=== PATIENT | female | born 1990 | race Caucasian/White ===

== ENCOUNTER → 2021-09-03 14:54 | Outpatient (CLI) | payer OTHER, SELFPAY ==
--- NOTE | ~2021-09-03 | MM_ITS ---
EXAMINATION: MM scrn prabha implant BI w aleta HISTORY: Screening mammogram TECHNIQUE: Craniocaudal and mediolateral oblique 3-D tomosynthesis images with implant displacement a nd synthetic 2-D images were generated. Craniocaudal and mediolateral oblique views of the breasts wi thout implant displacement were obtained using full field digital mammography. CAD analysis was submi tted and interpreted. COMPARISON: No prior mammogram is available for comparison at this institution. BREAST PARENCHYMAL COMPOSITION: There are scattered areas of fibroglandular density. FINDINGS: There is no evidence of suspicious mass, calcification, or architectural distortion to sugg est malignancy in either breast. There has been no suspicious interval change. IMPRESSION: 1. No mammographic evidence of malignancy. 2. Recommend routine screening mammography in one year. BI-RADS Category 1: Negative Reviewed, dictated and finalized at location A. STANT TO THE DEAN
== END ==
PROVIDERS: PCP Nurse Practitioner Adult Health; Visit Provider Nurse Practitioner Adult Health
DX: Z12.31 Encounter for screening mammogram for malignant neoplasm of breast (principal)
CPT/HCPCS: 77063; 77067

== ENCOUNTER 2022-10-18 16:32 | Outpatient (CLI) | payer OTHER, SELFPAY | END 2022-10-18 16:33 | disposition home or self-care (01) | LOC: ANHLAB 16:33 | PROVIDERS: Visit Provider Obstetrics & Gynecology | DX: R10.2 Pelvic and perineal pain (principal); Z01.818 Encounter for other preprocedural examination | CPT/HCPCS: 36415; 86850; 86900; 86901 ==

== ENCOUNTER 2022-10-22 01:42 | Day surgery (SDC) | payer OTHER, SELFPAY ==
[2022-10-14 13:55] VITALS: BMI 34.8
--- NOTE | 2022-10-14 14:20 | PC.NURSE ---
Report to the Outpatient Waiting Room, entrance under the green pavilion located off [facility], at time _0915 AM on date _10/22/22_. Planned Procedure Time: _1115AM_. Time changes happen often and if your time is changed the preop area will call you the afternoon before. - You and your visitor will be asked to self-screen and do not enter if you have any COVID symptoms. - Only one visitor is requested with a max of two and NO children visitors are allowed at this time. - The patient visitor may be requested to leave or wait in car when not with patient due to distancing restrictions. - A mask is optional within the hospital at this time. Patients may have clear liquids (water, carbonated beverages, clear teas, apple juice) until 3 hours prior to surgery with a maximum of 20 ounces. - No food from midnight until time of surgery Take the following medications with a SIP of water the morning of surgery: __XANAX NEEDED DO NOT STOP ANY OF YOUR OTHER PRESCRIPTION MEDICATIONS PRIOR TO SURGERY ?EXCEPT THE FOLLOWING Medications to discontinue per physician PLEASE CHECK W/ DR. LEONEL BAEZ RE: STOPPING KETOROLAC Date to take last dose Please no make-up, nail pashto, hairspray, perfume, deodorant, or body powder the day of surgery. No jewelry (including any body piercings) or valuables the day of surgery, leave them at home. Please take a shower or bath the night before, or the morning of, surgery with an antibacterial soap. Wear comfortable, loose fitting clothing. - Jewelry must be removed prior to entering the operating room. Rings and piercings that are not removed may be cut off. - The hospital will not accept responsibility for valuables. - Please leave all valuables, including medications, at home the day of surgery. If you are going home after surgery, a licensed city driver must drive you home. - NO public transportation without another adult if you receive anesthesia. - We recommend that an adult stay with you for 24 hours following discharge. - We also recommend that you do not drive, make important decision, drink alcoholic beverages, or take any drugs that were not prescribed by your health care provider for at least 24 hours after your discharge time. Follow any additional instructions given to you from your surgeon. If you or anyone in your household have experienced Covid symptoms in the past week, please notify your surgeon or the nurse liaison at the phone number below for possible testing. Telephone instructions given to __YEISON_and asked if any additional questions and then verbalized understanding. Patient advised to call surgeon office or pre surgery nurse liaison [phone] if any additional questions.
--- NOTE | 2022-10-20 12:02 | PM.IMHP ---
H&P: HPI History of Present Illness Date/Time: 10/20/22 12:02 Chief Complaint: Pelvic pain and left ovarian cyst Narrative: A 32-year-old female with severe pelvic pain and dyspareunia. Ultrasound shows a left ovarian cyst and she has a history endometriosis. Risks and benefits reviewed including but not exclusive of , aspiration pneumonia bleeding transfusion, infection, perforation injury to bowel bladder, bladder you, ureters, or other internal organs with need for laparotomy. She received the [employer] handout entitled laparoscopy. She had all questions answered and asked to proceed PMF Family History Family History Other Cerebrovascular accident Diabetes mellitus Family history of anemia Family history of arthritis Social History Social History Smoking packs per day: 0.5 Smoking cigarettes per day: 10.0 Years smoked: 16 Smoking pack-years: 8.00 Smoking status: Current every day smoker Tobacco type: cigarettes and e-cigarettes/vaping Additional smoking assessment comments: SWITCHED FROM CIGARETTES TO VAPING IN 2021 Alcohol intake: current Drinks per week: 2 Substance use: never Substance use type: does not use Lack of Transportation: No Lack of Food: Never True Current Housing: I Have Housing Concerned About Future Housing: Decline to Answer Difficulty Paying Gas/Electric Bills: Decline to Answer Difficulty Paying for Meds: Decline to Answer Currently Unemployed: Decline to Answer Difficulty w/ Childcare or Family Care: Decline to Answer Living arrangements: with family Occupation/Education: occupation Gender identity (if verbalized by the patient): Female Spiritual care concerns: No Meds Home Medications and Allergies Home Medications Medication Instructions Recorded Confirmed Type alprazolam 0.5 mg tablet 0.5 mg PO TID PRN Anxiety 10/14/22 10/14/22 History ketorolac 10 mg tablet 10 mg PO TID PRN Pain 10/14/22 10/14/22 History tirzepatide 5 mg/0.5 mL 5 mg subcut DAILY 10/14/22 10/14/22 History subcutaneous pen injector (Mounjaro) Allergies Allergy/AdvReac Type Severity Reaction Status Date / Time No Known Allergies Allergy Unverified 10/14/17 11:23 Exam Const: General: cooperative, healthy appearing, comfortable and overweight Orientation/consciousness: oriented to person, oriented to place and oriented to time HENMT: Head: normal to inspection Resp: Effort & Inspection: normal respiratory effort Cardio: Rate: regular rate Rhythm: regular rhythm Heart sounds: S1 normal heart sound present and S2 normal heart sound present GI: Inspection: normal to inspection : Speculum Exam - Vagina: normal appearance of the vagina Speculum Exam - Cervix: normal appearance of the cervix Bimanual exam- vagina & uterus: Uterine tenderness Bimanual Exam- Adnexa, other: Adnexal mass present on the left Assessment and Plan Assessment and plan (1) Left ovarian cyst: Code(s): N83.202 - Unspecified ovarian cyst, left side Status: Acute (2) Pelvic pain: Code(s): R10.2 - Pelvic and perineal pain Status: Acute Plan Laparoscopic left ovarian cystectomy
[2022-10-22] VITALS (8 sets, daily range): BP systolic 106–139; BP diastolic 62–81; PULSE 64–104; RESP 12–20; TEMP 36.3; O2SAT 100
--- NOTE | 2022-10-22 07:12 | WPDHPUPDATE1 ---
History and Physical Update Update Date/Time: 10/22/22 07:12 History and Physical has been reviewed, including an updated exam of the patient. There are NO changes in the patient's condition. Risks, benefits, and alternatives have been discussed and questions answered. Patient agrees to proceed with procedure.
[2022-10-22] MEDS: ACETAMINOPHEN 500 MG TABLET 1000 MG PO (09:01)
[2022-10-22] MEDS: KETOROLAC 15 MG/ML VIAL (*BKC) IV PUSH (09:02)
[2022-10-22] MEDS: LACTATED RINGERS 1,000 ML 30 ML IV CONT ×2 (09:09→11:04)
[2022-10-22 09:17] LABS: Glucose Point of Care 81 mg/dl (65-105)
--- NOTE | 2022-10-22 09:17 | WPDANESEPPF ---
Anes - Initial Pre Proc Eval Procedure: Operation Date: 10/22/22 10:15 Proposed Procedures p Laparoscopic Left Ovarian Cystectomy - Jaspal Fernandez MD Date/Time: 10/22/22 09:17 Surgeon: Jaspal Fernandez MD Pre Op Diagnosis: Pelvic Pain, Lt Ovarian Cyst Patient Data Age: 32 Gender: F Height: 1.68 m Weight: 98 kg Allergies Allergy/AdvReac Type Severity Reaction Status Date / Time No Known Allergies Allergy Unverified 10/14/17 11:23 Home Medications Medication Instructions Recorded Confirmed Type alprazolam 0.5 mg tablet 0.5 mg PO TID PRN Anxiety 10/14/22 10/14/22 History ketorolac 10 mg tablet 10 mg PO TID PRN Pain 10/14/22 10/14/22 History tirzepatide 5 mg/0.5 mL 5 mg subcut DAILY 10/14/22 10/14/22 History subcutaneous pen injector (Mounjaro) hydrocodone 5 mg-acetaminophen 325 1 tablet PO Q4H PRN pain #30 tabs 10/22/22 Rx mg tablet Patient hx anesthesia problems: none Family hx anesthesia problems: none Results Review: All pre-operative results and documents have been reviewed as part of the pre-operative evaluation. [facility] Family History Family History Other Cerebrovascular accident Diabetes mellitus Family history of anemia Family history of arthritis Social History Social History Smoking packs per day: 0.5 Smoking cigarettes per day: 10.0 Years smoked: 16 Smoking pack-years: 8.00 Smoking status: Current every day smoker Tobacco type: cigarettes and e-cigarettes/vaping Additional smoking assessment comments: SWITCHED FROM CIGARETTES TO VAPING IN 2021 Alcohol intake: current Drinks per week: 2 Substance use: never Substance use type: does not use Lack of Transportation: No Lack of Food: Never True Current Housing: I Have Housing Concerned About Future Housing: Decline to Answer Difficulty Paying Gas/Electric Bills: Decline to Answer Difficulty Paying for Meds: Decline to Answer Currently Unemployed: Decline to Answer Difficulty w/ Childcare or Family Care: Decline to Answer Living arrangements: with family Occupation/Education: occupation Gender identity (if verbalized by the patient): Female Spiritual care concerns: No Anes - Eval Final PreProcedure Day of Procedure 10/22/22 09:17 Patient weight: obese Heart: regular rate and rhythm Lungs: clear to auscultation Airway: Mallampati scale class II Neurological: alert and oriented Last oral intake: >/= 8 hours ASA classification: III Emergent: no Anesthetic plan: proceed Anesthesia type and monitoring: general ETT and standard monitoring Results Review: All pre-operative results and documents have been reviewed as part of the pre-operative evaluation. Informed Consent: The patient's anesthetic plan and its attendant risks and benefits were discussed with the patient/family/POA. Questions were solicited and answers provided to the satisfaction of the patient/family/POA.
--- NOTE | 2022-10-22 10:20 | P.OP_ITS ---
Procedure Note - Detailed Date of Procedure 10/22/22 Pre-op Diagnosis Pelvic Pain, Lt Ovarian Cyst Post-op Diagnosis Other ( endometriosis) Procedure Performed laparoscopic destruction of left ovarian cyst/destruction of endometriosis/ly sis of adhesions Surgeon Jaspal Fernandez MD Anesthesia General Indications 32-year-old female with left ovarian cyst and pelvic pain Findings normal-appearing uterus. Blistered endometriosis along left uterosacral ligam ent. Benign-appearing left ovarian cyst. Normal-appearing tubes and ovaries otherwise. Normal-appearing appendix and gallbladder and liver edge. Adhesions from the colon to the left lateral sidewall Description of Procedure the patient is prepped draped in the normal sterile fashion placed in dorsal lithotomy position. Under excellent general trach anesthesia weighted speculum placed in posterior fornix vagina. Anterior lip of the cervix grasped with single-tooth tenaculum. Carl's cannula inserted the cervix to be attached to the single-tooth. This would later be used for uterine manipulation. The bladder was emptied of clear urine and the weighted speculum was removed. Gloves were changed. An infraumbilical incision made the Veress needle passed in the abdomen. Abdomen filled with CO2 gas [id number]. The 5mm trocar advanced under direct visualization with the optic scope and no injury seen. Patient placed in Trendelenburg and a suprapubic incision made. The 5mm trocar advanced under direct visualization assuring no injury. Multiple adhesions were seen from the colon to the left lateral sidewall using sharp dissection this was sharply cleared until the left ovary and tube could be seen. A small benign ovarian cyst was seen and this was opened in linear fashion and drained of clear follicular fluid. The opposite the ovary and tube appeared within normal limits. The gallbladder and liver edge appeared within normal limits. There was a an area of blistered endometriosis along the left uterosacral ligament. This was cauterized at 35 w per 2nd with monopolar cautery. Irrigation undertaken to clear. No other abnormalities were seen. The lower site removed. The gas removed from the abdomen. The upper site removed. The incisions closed with 4 Monocryl and glue. The instruments removed from the vagina and the patient went to recovery in satisfactory condition. All sponge, needle, instrument counts were correct. There were no immediate complications noted Estimated Blood Loss 5 Drains No Packing No Pathology None sent Complications No immediate complications Condition Stable
[2022-10-22] MEDS: fentaNYL CITRATE INJ (*CRX) 100 MCG/2 ML VIAL 25 MCG IV PUSH ×8 (10:30→12:04)
[2022-10-22 10:36] LABS: Glucose Point of Care 89 mg/dl (65-105)
[2022-10-22] MEDS: KETOROLAC 30 MG/ML VIAL (*BKC) IV PUSH (11:36)
== END 2022-10-22 12:25 | disposition home or self-care (01) ==
PROVIDERS: Visit Provider Obstetrics & Gynecology
PROC: (CPT 49320; principal; 2022-10-22 10:15)
DX: R10.2 Pelvic and perineal pain (principal); N83.202 Unspecified ovarian cyst, left side; N80.3C2 Endometriosis of the left uterosacral ligament, unspecified depth; F17.210 Nicotine dependence, cigarettes, uncomplicated; F17.290 Nicotine dependence, other tobacco product, uncomplicated
CPT/HCPCS: 58662; 36415; 82948; 86850; 86900; 86901; A9270; J1100; J1885; J2250; J2405; J2704; J2710; J3010; J7120

== ENCOUNTER → 2022-12-09 17:17 | Outpatient (CLI) | payer OTHER, SELFPAY ==
--- NOTE | ~2022-12-09 | XR_ITS ---
EXAMINATION: XR hip RT min 2V DATE: 12/09/2022 17:44 INDICATION: Right hip pain. TECHNIQUE: 2 views of right hip were obtained. COMPARISON: None. FINDINGS: Bone alignment is normal. No fracture. Right hip joint space is normal. IMPRESSION: 1. Normal right hip. Reviewed, dictated and finalized at location E. IMPRESSION: 1. Normal right hip.
--- NOTE | ~2022-12-09 | XR_ITS ---
EXAMINATION: XR lumbar spine 2-3V DATE: 12/09/2022 17:44 INDICATION: Low back pain. TECHNIQUE: 3 views of lumbar spine were obtained. COMPARISON: CT abdomen and pelvis 09/27/2017 FINDINGS: There is 6 degrees levocurvature of lumbar spine. Vertebral body heights and intervertebral disc heights are normal. The facet joints are unremarkable. IMPRESSION: 1. No etiology for the patient's symptoms. Reviewed, dictated and finalized at location E.
== END ==
PROVIDERS: PCP Family Medicine; Visit Provider Obstetrics & Gynecology
DX: M54.50 Low back pain, unspecified (principal); M25.551 Pain in right hip
CPT/HCPCS: 72100; 73502

== ENCOUNTER 2024-02-22 15:34 | Outpatient (RCR) | payer OTHER, SELFPAY | END 2024-05-22 23:59 | disposition home or self-care (01) | LOC: ANHLAB 15:34 | PROVIDERS: PCP Family Medicine; Visit Provider Obstetrics & Gynecology | DX: O36.0190 Maternal care for anti-D [Rh] antibodies, unspecified trimester, not applicable or unspecified (principal); Z3A.00 Weeks of gestation of pregnancy not specified | CPT/HCPCS: 36415; 85461; 86850; 86900; 86901 ==

== ENCOUNTER 2024-05-09 09:53 | Outpatient (CLI) | payer OTHER, SELFPAY ==
[2024-05-09 10:30] VITALS: BP 142/90; PULSE 88
[2024-05-09 10:31] LABS: Basophils Absolute Auto 0.1 K/mm3 (0.0-0.1); Basophils Percent Auto 0.5 % (0.2-1.2); Eosinophils Absolute Auto 0.1 K/mm3 (0-0.3); Eosinophils Percent Auto 0.5 % (0-4.4); Hemoglobin 12.2 g/dL (12.0-15.0); Immature Granulocyte Absolute 0.09 K/mm3 (0.00-0.031); Immature Granulocyte Percent A 0.7 % (0-0.5); Lymphocytes Absolute Auto 1.87 K/mm3 (0.9-3.2); Lymphocytes Percent Auto 14.5 % (18.3-44.2); Mean Corpuscular HGB Conc 34.9 g/dl (32-36); Mean Corpuscular Hemoglobin 32.1 pg (26-34); Mean Corpuscular Volume 92.1 fl (80-100); Mean Platelet Volume 12.3 fl (7.4-10.4); Monocytes Absolute Auto 0.8 K/mm3 (0.1-0.6); Monocytes Percent Auto 6.5 % (2.6-8.5); Neutrophils Percent Auto 77.3 % (45.5-73.1); Platelet Count Result 254 k/mm3 (150-375); Red Cell Distribution Width 14.2 % (11.5-14.5); White Blood Count 12.9 K/mm3 (4.5-10.0)
[2024-05-09 10:36] LABS: Ketones Urine Negative (Negative)
[2024-05-09 10:37] LABS: Add Urine Microscopic? YES; Appearance Urine Clear (Clear); Bilirubin Urine 1+ (Negative); Blood Urine Negative (Negative); Color Urine Yellow (Yellow); Glucose Urine UA Negative (Negative); Nitrate Urine Negative (Negative); Protein Urine 1+ mg/dL (Negative)
[2024-05-09 10:38] LABS: Leukocyte Esterase Ur Negative LEU/UL (Negative); Urobilinogen Urine 0.2 mg/dL (<2.0)
[2024-05-09 10:44] LABS: Alanine Aminotransferase 17 U/L (6-35); Albumin Level 3.7 g/dL (3.5-5.1); Alkaline Phosphatase 111 U/L (38-126); Anion Gap 9 mmol/L (4-12); Aspartate Amino Transferase 33 U/L (14-36); Bilirubin,Total 0.2 mg/dL (0.2-1.3); Blood Urea Nitrogen 12 mg/dL (7-17); Calcium 9.5 mg/dL (8.4-10.2); Carbon Dioxide 20 mmol/L (22-30); Chloride 106 mmol/L (98-107); Estimated Glomerular Filt Rate > 60; Glucose 85 mg/dL (65-110); Potassium 4.1 mmol/L (3.4-5.0); Sodium 135 mmol/L (137-145); Uric Acid 6.9 mg/dL (2.5-7.5)
[2024-05-09 10:45] VITALS: BP 150/90; PULSE 93
[2024-05-09 10:46] LABS: Creatinine Urine 213.2 mg/dL; Total Protein Urine Random 35 mg/dL; Ur Ttl Prot Creatinine Ratio 0.16 mg/mg (0-0.20)
[2024-05-09 10:48] LABS: Bacteria Urine None seen /hpf; RBC Urine None seen /hpf (0-2); Squamous Epithelial Cell Urine Moderate /hpf (Few); WBC Urine None seen /hpf (0-3)
[2024-05-09 11:00] VITALS: BP 147/91; PULSE 89
[2024-05-09 11:15] VITALS: BP 142/83; PULSE 85
--- NOTE | 2024-05-09 11:30 | PC.NURSE ---
Dr Gould informed of lab results, BP's and symptoms, patient has an appt today in office. Ok to dc home and have patient return for appt today.
[2024-05-09 11:32] VITALS: BMI 42.0
== END 2024-05-09 11:32 | disposition home or self-care (01) ==
LOC: ANHOBOP 09:58 → ANHOBPP 10:04
PROVIDERS: PCP Physician Assistant; Visit Provider Obstetrics & Gynecology
DX: O13.9 Gestational [pregnancy-induced] hypertension without significant proteinuria, unspecified trimester (principal); Z3A.00 Weeks of gestation of pregnancy not specified
CPT/HCPCS: 36415; 59025; 80053; 81001; 82570; 84156; 84550; 85025; 99199

== ENCOUNTER 2024-05-11 07:25 | Outpatient (RCR) | payer OTHER, SELFPAY ==
[2024-05-11 08:07] VITALS: BP 141/88; PULSE 78
== END 2024-08-09 23:59 | disposition home or self-care (01) ==
LOC: ANHOBOP 07:25
PROVIDERS: PCP Physician Assistant; Visit Provider Obstetrics & Gynecology
DX: O13.9 Gestational [pregnancy-induced] hypertension without significant proteinuria, unspecified trimester (principal)
CPT/HCPCS: 59025

== ENCOUNTER 2024-05-12 15:13 | Inpatient (IN) | payer OTHER, SELFPAY ==
[2024-05-12] VITALS (84 sets, daily range): BP systolic 123–159; BP diastolic 71–110; PULSE 26–121; TEMP 36.2–36.6; O2SAT 80–100; BMI 43.5
[2024-05-12] MEDS: LACTATED RINGERS 1,000 ML 125 ML IV CONT ×2 (16:14→21:37)
[2024-05-12] MEDS: AMPICILLIN 2 GM/NS 100 ML 2 GM/100 ML BAG IVPB (16:14)
[2024-05-12] MEDS: OXYTOCIN 30 UNITS/NS 500 ML 30 UNITS/500 ML BAG IV CONT (16:15)
[2024-05-12 16:30] LABS: Basophils Absolute Auto 0.1 K/mm3 (0.0-0.1); Basophils Percent Auto 0.4 % (0.2-1.2); Eosinophils Absolute Auto 0.1 K/mm3 (0-0.3); Eosinophils Percent Auto 0.4 % (0-4.4); Hematocrit 33.6 % (37.0-47.0); Hemoglobin 11.6 g/dL (12.0-15.0); Immature Granulocyte Absolute 0.07 K/mm3 (0.00-0.031); Immature Granulocyte Percent A 0.6 % (0-0.5); Lymphocytes Absolute Auto 1.69 K/mm3 (0.9-3.2); Lymphocytes Percent Auto 14.9 % (18.3-44.2); Mean Corpuscular HGB Conc 34.5 g/dl (32-36); Mean Corpuscular Hemoglobin 32.1 pg (26-34); Mean Corpuscular Volume 93.1 fl (80-100); Mean Platelet Volume 12.5 fl (7.4-10.4); Monocytes Absolute Auto 0.6 K/mm3 (0.1-0.6); Monocytes Percent Auto 5.2 % (2.6-8.5); Neutrophils Absolute Auto 8.9 K/mm3 (1.3-6.7); Neutrophils Percent Auto 78.5 % (45.5-73.1); Platelet Count Result 235 k/mm3 (150-375); Red Blood Count 3.61 M/mm3 (4.2-5.4); Red Cell Distribution Width 14.5 % (11.5-14.5); White Blood Count 11.4 K/mm3 (4.5-10.0)
[2024-05-12 16:42] LABS: Alanine Aminotransferase 19 U/L (6-35); Albumin Level 3.4 g/dL (3.5-5.1); Alkaline Phosphatase 103 U/L (38-126); Anion Gap 8 mmol/L (4-12); Aspartate Amino Transferase 35 U/L (14-36); Bilirubin,Total 0.2 mg/dL (0.2-1.3); Blood Urea Nitrogen 13 mg/dL (7-17); Calcium 9.1 mg/dL (8.4-10.2); Carbon Dioxide 20 mmol/L (22-30); Chloride 107 mmol/L (98-107); Estimated Glomerular Filt Rate > 60; Glucose 108 mg/dL (65-110); Potassium 4.1 mmol/L (3.4-5.0); Sodium 135 mmol/L (137-145); Uric Acid 6.9 mg/dL (2.5-7.5)
[2024-05-12 17:26] LABS: Rapid Plasma Reagin Non-Reactive (NonReactive)
--- NOTE | 2024-05-12 17:34 | PM.IMHP ---
H&P: HPI History of Present Illness Date/Time: 05/12/24 17:34 Chief Complaint: Rupture membranes at term Narrative: this is a 34-year-old 1 para 0 whose last menstrual period was 08/19/2019 through 4. Her EDC is 05/25/2024, confirmed by 9 tawnya Schmitt at 28 weeks she has had mildly elevated blood pressures toward the end of h her this on labetalol PMFSH Family History Family History Grandparent Cerebrovascular accident Diabetes mellitus Family history of arthritis Mother Family history of anemia Breast cancer Social History Social History Smoking packs per day: 0.5 Smoking cigarettes per day: 10.0 Years smoked: 16 Smoking pack-years: 8.00 Smoking status: Former smoker Tobacco type: cigarettes and e-cigarettes/vaping Smoking end date: 10/18/23 Additional smoking assessment comments: SWITCHED FROM CIGARETTES TO VAPING IN 2021 Alcohol intake: current Drinks per week: 2 Substance use: never Substance use type: does not use Do You Feel Safe in your Home?: Yes Lack of Transportation: No Lack of Food: Never True Current Housing: I Have Housing Concerned About Future Housing: No Difficulty Paying Gas/Electric Bills: No Difficulty Paying for Meds: No Currently Unemployed: No Education: Associate Degree Difficulty w/ Childcare or Family Care: No Living arrangements: with family Occupation/Education: occupation Gender identity (if verbalized by the patient): Female Sexual Orientation (if Verbalized by the Patient): Straight or Heterosexual Spiritual care concerns: No Meds Home Medications and Allergies Home Medications Medication Instructions Recorded Confirmed Type alprazolam 0.5 mg tablet 0.5 mg PO TID PRN Anxiety 10/14/22 05/12/24 History prenat.vits,nunu,fmk-izmq-qccbl 1 tablet PO DAILY 04/28/24 05/12/24 History labetalol 200 mg tablet 200 mg PO BID 05/12/24 05/12/24 History Allergies Allergy/AdvReac Type Severity Reaction Status Date / Time No Known Allergies Allergy Unverified 10/22/22 09:54 Vital Signs Vital Signs - 24 hr 05/12/24 15:46 05/12/24 16:16 05/12/24 16:31 Temperature Pulse Rate 76 83 81 Blood Pressure 139/81 139/74 143/82 H Oxygen Delivery 05/12/24 16:46 05/12/24 17:01 05/12/24 15:30 Temperature 97.6 F Pulse Rate 85 89 Blood Pressure 137/81 139/81 Oxygen Delivery 05/12/24 17:31 05/12/24 16:50 Temperature Pulse Rate 77 Blood Pressure 139/87 Oxygen Delivery Room Air Exam Const: General: cooperative, healthy appearing and comfortable Nutritional Appearance: average body habitus Orientation/consciousness: oriented to person, oriented to place and oriented to time Resp: Effort & Inspection: normal respiratory effort Cardio: Rate: regular rate Rhythm: regular rhythm Heart sounds: S1 normal heart sound present and S2 normal heart sound present GI: Inspection: normal to inspection ( gravid soft uterus) : External Female Exam: normal external appearance Speculum Exam - Vagina: normal appearance of the vagina Speculum Exam - Cervix: normal appearance of the cervix ( cervix 2/50%. Meconium fluid present. heart tones reassuring) H&P: Results Labs Labs: Short CBC 05/12/24 Range/Units 16:12 WBC 11.4 H (4.5-10.0) K/mm3 Hgb 11.6 L (12.0-15.0) g/dL Hct 33.6 L (37.0-47.0) % Plt Count 235 (150-375) k/mm3 BMP 05/12/24 16:22 Sodium 135 L Potassium 4.1 Chloride 107 Carbon Dioxide 20 L BUN 13 Creatinine 0.60 L Glucose 108 Calcium 9.1 Liver Function 05/12/24 Range/Units 16:22 Total Bilirubin 0.2 (0.2-1.3) mg/dL AST 35 (14-36) U/L ALT 19 (6-35) U/L Alkaline Phosphatase 103 (38-126) U/L Albumin 3.4 L (3.5-5.1) g/dL Assessment and Plan Assessment and plan (1) Term
[2024-05-12 17:35] LABS: HIV 1/2 Ab P24 Ag Result Negative (Negative)
[2024-05-12] MEDS: AMPICILLIN 1 GM/NS 50 ML 1 GM/50 ML BAG IVPB (19:58)
--- NOTE | 2024-05-12 20:02 | WPDANESEPPF ---
Anes - Initial Pre Proc Eval Date/Time: 05/12/24 20:02 Surgeon: Jaspal Fernandez MD Pre Op Diagnosis: leaking Patient Data Age: 34 Gender: F Height: 1.68 m Weight: 122.5 kg Last Vital Signs Temp 36.5 C 05/12/24 18:00 Pulse 79 05/12/24 20:01 BP 147/80 H 05/12/24 20:01 Pulse Ox 98 05/12/24 20:01 O2 Del Method Room Air 05/12/24 16:50 Allergies Allergy/AdvReac Type Severity Reaction Status Date / Time No Known Allergies Allergy Unverified 10/22/22 09:54 Home Medications Medication Instructions Recorded Confirmed Type alprazolam 0.5 mg tablet 0.5 mg PO TID PRN Anxiety 10/14/22 05/12/24 History prenat.vits,nunu,[id number]-qpuwh 1 tablet PO DAILY 04/28/24 05/12/24 History labetalol 200 mg tablet 200 mg PO BID 05/12/24 05/12/24 History Laboratory Tests 05/12/24 05/12/24 16:12 16:22 WBC 11.4 H K/mm3 (4.5-10.0) RBC 3.61 L M/mm3 (4.2-5.4) Hgb 11.6 L g/dL (12.0-15.0) Hct 33.6 L % (37.0-47.0) MCV 93.1 fl (80-100) MCH 32.1 pg (26-34) MCHC 34.5 g/dl (32-36) RDW 14.5 % (11.5-14.5) Plt Count 235 k/mm3 (150-375) MPV 12.5 H fl (7.4-10.4) Immature Gran % (Auto) 0.6 H % (0-0.5) Neut % (Auto) 78.5 H % (45.5-73.1) Lymph % (Auto) 14.9 L % (18.3-44.2) Gooding % (Auto) 5.2 % (2.6-8.5) Eos % (Auto) 0.4 % (0-4.4) Baso % (Auto) 0.4 % (0.2-1.2) Lymph # (Auto) 1.69 K/mm3 (0.9-3.2) Gooding # (Auto) 0.6 K/mm3 (0.1-0.6) Eos # (Auto) 0.1 K/mm3 (0-0.3) Baso # (Auto) 0.1 K/mm3 (0.0-0.1) Abs Immat Gran (auto) 0.07 H K/mm3 (0.00-0.031) Absolute Neuts (auto) 8.9 H K/mm3 (1.3-6.7) Absolute Nucleated RBC 0.000 K/mm3 (0.0-0.012) Nucleated RBC % 0.0 % (0.0-0.2) Sodium 135 L mmol/L (137-145) Potassium 4.1 mmol/L (3.4-5.0) Chloride 107 mmol/L (98-107) Carbon Dioxide 20 L mmol/L (22-30) Anion Gap 8 mmol/L (4-12) BUN 13 mg/dL (7-17) Creatinine 0.60 L mg/dL (0.7-1.0) Estim Creat Clear Calc Not Reportable Estimated GFR > 60 (59 - ) Glucose 108 mg/dL (65-110) Uric Acid 6.9 mg/dL (2.5-7.5) Calcium 9.1 mg/dL (8.4-10.2) Total Bilirubin 0.2 mg/dL (0.2-1.3) AST 35 U/L (14-36) ALT 19 U/L (6-35) Alkaline Phosphatase 103 U/L (38-126) Total Protein 7.0 g/dL (6.3-8.2) Albumin 3.4 L g/dL (3.5-5.1) RPR Non-reactive (NonReactive) HIV 1&2 Ab/P24 Ag 4thGn Negative (Negative) Blood Type O Positive Antibody Screen Negative Patient hx anesthesia problems: none Family hx anesthesia problems: none Results Review: All pre-operative results and documents have been reviewed as part of the pre-operative evaluation. [facility] Family History Family History Grandparent Cerebrovascular accident Diabetes mellitus Family history of arthritis Mother Family history of anemia Breast cancer Social History Social History Smoking packs per day: 0.5 Smoking cigarettes per day: 10.0 Years smoked: 16 Smoking pack-years: 8.00 Smoking status: Former smoker Tobacco type: cigarettes and e-cigarettes/vaping Smoking end date: 10/18/23 Additional smoking assessment comments: SWITCHED FROM CIGARETTES TO VAPING IN 2021 Alcohol intake: current Drinks per week: 2 Substance use: never Substance use type: does not use Do You Feel Safe in your Home?: Yes Lack of Transportation: No Lack of Food: Never True Current Housing: I Have Housing Concerned About Future Housing: No Difficulty Paying Gas/Electric Bills: No Difficulty Paying for Meds: No Currently Unemployed: No Education: Associate Degree [employer]
[2024-05-12] MEDS: ONDANSETRON INJ 4 MG/2 ML VIAL IV PUSH (20:32)
[2024-05-12] MEDS: SODIUM CHLORIDE 0.9% IV 300 ML 600 ML I-UTERINE (21:06)
[2024-05-13] VITALS (29 sets, daily range): BP systolic 69–154; BP diastolic 43–103; PULSE 69–114; RESP 12–19; TEMP 36.4–37.1; O2SAT 91–100
--- NOTE | 2024-05-13 00:11 | WPDHPUPDATE1 ---
History and Physical Update Update Date/Time: 05/13/24 00:11 History and Physical has been reviewed, including an updated exam of the patient. There are NO changes in the patient's condition. Risks, benefits, and alternatives have been discussed and questions answered. Patient agrees to proceed with procedure. The patient is unable to bring the head down below -1 station. heart tones with multiple decelerations but has now recovered it with repositioning. Offered low-transverse section. Risks and benefits were reviewed
[2024-05-13] MEDS: ACETAMINOPHEN 500 MG TABLET 1000 MG PO (00:15)
[2024-05-13] MEDS: FAMOTIDINE 20 MG/2 ML VIAL IV PUSH (00:15)
[2024-05-13] MEDS: ONDANSETRON INJ 4 MG/2 ML VIAL IV PUSH (00:17)
[2024-05-13] MEDS: ceFAZolin 3 GM/D5W 100 ML 100 ML IVPB (00:31)
[2024-05-13] MEDS: AZITHROMYCIN 500 MG/NS 250 ML 500 MG/250 ML BAG 250 MG IVPB (00:37)
--- NOTE | 2024-05-13 01:12 | P.PCNOB_ITS ---
OB - Delivery Note Procedure Delivery date: 05/13/24 Pre-op diagnosis: Other ( intolerance to labor) Post-op Diagnosis: Same Induction method: None Delivery augmentation: Pitocin Delivery monitor: External FHT, External Uterine, Internal FHT and Internal Uterine Prior to decision for section, ACOG/SM labor guidelines were considered and discussed with the patient and staff. Decision made to proceed with the section.: Yes Procedure Performed: Primary Surgeon: Jaspal Fernandez MD Anesthesia type: Epidural Description of Procedure/Findings: patient was admitted to the floor with spontaneous rupture membranes at 38 weeks gestation. She had thick meconium fluid an IUPC electrode were placed. She got to completely dilated which she was pushing for the 1st half are she decelerations and these took time to recover repositioning fluid etc. brought the baby back but in light of poor progression she was offered low-transverse section. After obtaining informed consent the patient was prepped draped in normal sterile fashion placed in the supine position. Under excellent epidural anesthesia the abdomen was entered in Pfannenstiel fashion progressed through the layers of fascia. The fascia incised midline carried in upward outward fashion underlying muscles were sharply dissected. Parietal peritoneum obliquely clamps and by sharp dissection carried superiorly and inferiorly to the dome of the bladder. Bladder blade was placed. Bladder blade returned after a bladder flap was made. A low-transverse incision made the head delivered the [place] position. Nuchal cord checked noted be loose x1 rewarmed the occiput. Anterior posterior shoulder delivered spontaneously. The cord was wrapped around the baby's leg as well was clamped x2 cut infant passed off the table. Placenta delivered intact manually uterus delivered from the abdomen wrapped in a moist towel. After assuring no membranes or debris remained in the uterus, the uterus was closed continuous running 0 Vicryl from lateral edge to lateral edge. This followed by 2nd imbricating running locking 0 Vicryl from lateral edge to lateral edge. Hemostasis was assured. Ovaries and tubes appeared within normal limits. Uterus returned to the abdomen. The laps removed and accounted for and the uterine incision inspected 1 last time. The fascia closed with continuous running 0 Vicryl from lateral edge to lateral edge. Irrigation subcutaneous layer and the skin closed with 4 Monocryl and glue QBL was 595. All sponge, needle, instrument counts were correct. There were no immediate complications Specimen: No Estimated Blood Loss: 595 Urine Output: 350 Drains: No Packing: No Pathology: None sent Complications: No immediate complications Condition: Stable Disposition: PACU [place] Baby Date of : 05/13/24 Time of : 00:49 Gestational Age by Date: 39 gender: Female Weight (pounds): 7 Weight (ounces): 1 presentation: vertex position: Right Occiput Anterior Placenta delivery description: Spontaneous Cord Vessel Description: 3 Vessels, Nuchal Cord, Loose and Reduced
--- NOTE | 2024-05-13 01:16 | PM.DS ---
DS: Admitting Diagnosis Discharge Date 05/14/2024 Admitting Diagnosis term /positive B strep DS: Discharge Diagnosis Discharge Diagnosis (1) Positive testing for group B Streptococcus: Code(s): B95.1 - Streptococcus, group B, as the cause of diseases classified elsewhere Status: Acute (2) Term : Code(s): Z34.90 - Encounter for supervision of normal , unspecified, unspecified trimester Status: Acute DS: Summary Hospital Course Reason for hospitalization: patient was admitted in active labor underwent low-transverse section on 05/13/2024 early a.m. for intolerance to labor Hospital Course: patient's hospital course unremarkable. She remained afebrile. She was Ambulating without difficulty, eating a regular diet, voiding without difficulty, and generally without complaints. Time Spent with Patient Time attestation: Total time spent providing and/or coordinating discharge services: Exam Const: General: cooperative, healthy appearing and comfortable Orientation/consciousness: oriented to person, oriented to place and oriented to time HENMT: Head: normal to inspection Resp: Effort & Inspection: normal respiratory effort Cardio: Rate: regular rate Rhythm: regular rhythm Heart sounds: S1 normal heart sound present and S2 normal heart sound present GI: Inspection: normal to inspection ( fundus firm below the umbilicus) and incision ( wound is clean dry and intact) DS: Data Data Completed and Pending Labs on day of discharge: Labs from last 24 hours 05/12/24 05/12/24 16:22 16:12 WBC 11.4 H RBC 3.61 L Hgb 11.6 L Hct 33.6 L MCV 93.1 MCH 32.1 MCHC 34.5 RDW 14.5 Plt Count 235 MPV 12.5 H Immature Gran % (Auto) 0.6 H Neut % (Auto) 78.5 H Lymph % (Auto) 14.9 L Oliver % (Auto) 5.2 Eos % (Auto) 0.4 Baso % (Auto) 0.4 Lymph # (Auto) 1.69 Oliver # (Auto) 0.6 Eos # (Auto) 0.1 Baso # (Auto) 0.1 Abs Immat Gran (auto) 0.07 H Absolute Neuts (auto) 8.9 H Absolute Nucleated RBC 0.000 Nucleated RBC % 0.0 Sodium 135 L Potassium 4.1 Chloride 107 Carbon Dioxide 20 L Anion Gap 8 BUN 13 Creatinine 0.60 L Estim Creat Clear Calc Not Reportable Estimated GFR > 60 Glucose 108 Uric Acid 6.9 Calcium 9.1 Total Bilirubin 0.2 AST 35 ALT 19 Alkaline Phosphatase 103 Total Protein 7.0 Albumin 3.4 L RPR Non-reactive HIV 1&2 Ab/P24 Ag 4thGn Negative Blood Type O Positive Antibody Screen Negative Discharge Plan Discharge Attending physician on discharge: Jaspal Mayen Discharging Clinician: Jaspal Mayen Patient Disposition: Home, Self-Care Activity: may shower, may drive after 2 weeks and pelvic rest Diet: heart healthy Wound Care Instructions: follow printed instructions Patient Instructions: Antibiotic Form Stand Alone Forms: General Discharge Information Follow-up/Referrals: Jaspal Mayen MD [Physician] - Discharge Medications: New hydrocodone-acetaminophen 5-325 mg tablet 1 tablet PO Q4H PRN (Reason: pain) Qty: 30 0RF Continued alprazolam 0.5 mg tablet 0.5 mg PO TID PRN (Reason: Anxiety) #2 Tablet 1 tablet PO DAILY labetalol 200 mg tablet 200 mg PO BID Date of admission: 05/12/24 15:13 Primary Care Provider: Patrick,Walter Merino Admitting Provider: Jaspal Mayen Attending physician on admission: Jaspal Mayen Condition: Stable
--- NOTE | 2024-05-13 01:29 | P.PNAN_ITS ---
Anes - Eval Final PreProcedure Day of Procedure 05/13/24 01:29 Patient weight: morbidly obese Heart: regular rate and rhythm Lungs: clear to auscultation Neurological: alert and oriented ASA classification: III Emergent: no Anesthetic plan: proceed Anesthesia type and monitoring: regional epidural and standard monitoring Other findings: late entry will use existing epid for c/s pt received 40u of pitocin in OR Results Review: All pre-operative results and documents have been reviewed as part of the pre- operative evaluation. Informed Consent: The patient's anesthetic plan and its attendant risks and benefits were dis cussed with the patient/family/POA. Questions were solicited and answers provided to the satisfaction of the patient/family/POA.
[2024-05-13] MEDS: PROMETHAZINE HCL 25 MG/ML AMPUL 12.5 MG IV PUSH (01:54)
[2024-05-13] MEDS: fentaNYL CITRATE INJ (*CRX) 100 MCG/2 ML VIAL IV PUSH (02:56)
[2024-05-13] MEDS: OXYTOCIN 30 UNITS/NS 500 ML 30 UNITS/500 ML BAG 125 UNITS IV CONT (03:02)
--- NOTE | 2024-05-13 03:35 | OBPPTRN ---
Patient transferred to post room #290 via stretcher. Support person present. Oriented to unit, room, information board, rooming in, admission packet and security measures. Patient verbalizes understanding.
[2024-05-13] MEDS: KETOROLAC 15 MG/ML VIAL (*BKC) IV PUSH ×4 (03:55→22:11)
[2024-05-13] MEDS: ACETAMINOPHEN 325 MG TABLET 650 MG PO ×4 (03:55→22:11)
[2024-05-13] MEDS: HYDROcodone/acetaminophen (*CRX) 5-325 MG TABLET 1 TAB PO ×2 (04:46→21:02)
--- NOTE | 2024-05-13 07:20 | PC.NURSE ---
Patient states that she is feeling good and wanting to get up. Lindsay cath removed and patient up to chair. Tolerated well. Call light in reach.
[2024-05-13] MEDS: KCL 20 MEQ/D5/0.45% SOD CHL 1,000 ML 125 ML IV CONT (07:32)
[2024-05-13] MEDS: LIDOCAINE 5% PATCH 1 PATCH TRANSDERM (07:32)
[2024-05-13] MEDS: SIMETHICONE 80 MG TAB.CHEW PO ×2 (07:34→16:22)
[2024-05-13] MEDS: DOCUSATE SODIUM 100 MG CAPSULE PO ×2 (10:55→16:23)
[2024-05-13] MEDS: MULTIVIT/MIN/PREN/FOL AC/IRON TABLET 1 TAB PO (10:55)
--- NOTE | 2024-05-13 16:53 | PC.NURSE ---
1600. discussed with mom her goals and preference for feeding her . She reports she would like to consider still, but is not interested at this time to initiate pumping. She also declined to try to breastfeed her infant for feeding at this time. Educated mom on milk production and why initiating pumping or hand expression is important in producing milk and establishing a strong supply. Mom verbalized understanding of teaching and knows to call RN or staff when she is ready to initiate pumping today.
[2024-05-13] MEDS: LABETALOL HCL 100 MG TABLET 200 MG (21:01)
[2024-05-14] VITALS (8 sets, daily range): BP systolic 122–147; BP diastolic 59–90; PULSE 80–84; RESP 16–18; TEMP 36.4–36.6; O2SAT 99
[2024-05-14] MEDS: ACETAMINOPHEN 325 MG TABLET 650 MG PO ×3 (03:56→17:00)
[2024-05-14] MEDS: IBUPROFEN 600 MG TABLET PO ×3 (03:56→16:59)
[2024-05-14 04:24] LABS: Basophils Absolute Auto 0.1 K/mm3 (0.0-0.1); Basophils Percent Auto 0.5 % (0.2-1.2); Eosinophils Absolute Auto 0.1 K/mm3 (0-0.3); Eosinophils Percent Auto 0.7 % (0-4.4); Hematocrit 27.1 % (37.0-47.0); Hemoglobin 9.2 g/dL (12.0-15.0); Immature Granulocyte Absolute 0.08 K/mm3 (0.00-0.031); Immature Granulocyte Percent A 0.7 % (0-0.5); Lymphocytes Absolute Auto 2.05 K/mm3 (0.9-3.2); Lymphocytes Percent Auto 18.5 % (18.3-44.2); Mean Corpuscular HGB Conc 33.9 g/dl (32-36); Mean Corpuscular Hemoglobin 32.1 pg (26-34); Mean Corpuscular Volume 94.4 fl (80-100); Mean Platelet Volume 11.7 fl (7.4-10.4); Monocytes Absolute Auto 0.8 K/mm3 (0.1-0.6); Monocytes Percent Auto 7.2 % (2.6-8.5); Neutrophils Percent Auto 72.4 % (45.5-73.1); Platelet Count Result 206 k/mm3 (150-375); Red Blood Count 2.87 M/mm3 (4.2-5.4); Red Cell Distribution Width 14.7 % (11.5-14.5); White Blood Count 11.1 K/mm3 (4.5-10.0)
[2024-05-14] MEDS: LABETALOL HCL 100 MG TABLET 200 MG PO ×2 (04:41→12:28)
--- NOTE | 2024-05-14 07:30 | WPDANLDPN2 ---
Anes-Prog Note L&D Date/Time: 05/14/24 07:30 Comfortable throughout: labor and section Neuraxial method: epidural Epidural/Spinal procedure site: clean & non-tender Neuro status: Neuro function grossly intact. Cardiovascular status: normal Respiratory status: normal Airway patency: baseline Mental status: baseline Post-Op hydration status: normal Vital Signs: Last Vital Signs Temp 98.1 F 05/13/24 19:20 Pulse 84 05/14/24 04:41 Resp 12 05/13/24 19:20 BP 126/76 05/14/24 05:38 Pulse Ox 98 05/13/24 19:20 O2 Del Method Room Air 05/13/24 16:15 Pain score (VAS): 0/10 I/O: Intake & Output 05/13/24 05/13/24 05/14/24 15:59 23:59 07:59 Output Total 900 Balance -900 Post-procedural complaints: none Patient feedback: Patient satisfied with anesthetic care.
--- NOTE | 2024-05-14 07:31 | WPDANLDNPN2 ---
Anes-Prog Note L&D-Neuraxial Date/Time: 05/14/24 07:31 Neuraxial medications: intrathecal PF morphine Opiod-related complaints: none Patient feedback: Patient satisfied with post-operative pain management.
--- NOTE | 2024-05-14 07:32 | PM.OBPNVD ---
OB - PN: Subj Subjective Date/time seen: 05/14/24 07:32 Patient comments: no complaints and pain well controlled baby status: doing well and nursing well OB - PN: Obj Data Labs 05/14/24 04:11 05/12/24 16:22 Labs: Laboratory Results - last 24 hr 05/14/24 04:11 WBC 11.1 H RBC 2.87 L Hgb 9.2 L Hct 27.1 L MCV 94.4 MCH 32.1 MCHC 33.9 RDW 14.7 H Plt Count 206 MPV 11.7 H Immature Gran % (Auto) 0.7 H Neut % (Auto) 72.4 Lymph % (Auto) 18.5 Cottle % (Auto) 7.2 Eos % (Auto) 0.7 Baso % (Auto) 0.5 Lymph # (Auto) 2.05 Cottle # (Auto) 0.8 H Eos # (Auto) 0.1 Baso # (Auto) 0.1 Abs Immat Gran (auto) 0.08 H Absolute Neuts (auto) 8.0 H Absolute Nucleated RBC 0.000 Nucleated RBC % 0.0 OB - PN A/P Plan day: 1 Plan: routine care Time Spent With Patient Time: Total time spent is greater than 50% in coordination of care (as documented) at patient's floor/unit and/or counseling patient: Time with patient: less than 15 minutes Exam Const: General: cooperative, healthy appearing and comfortable Nutritional Appearance: overweight Orientation/consciousness: oriented to person, oriented to place and oriented to time Resp: Effort & Inspection: normal respiratory effort Cardio: Rate: regular rate Rhythm: regular rhythm Heart sounds: S1 normal heart sound present and S2 normal heart sound present GI: Inspection: normal to inspection and incision (cdi)
[2024-05-14] MEDS: HYDROcodone/acetaminophen (*CRX) 5-325 MG TABLET 1 TAB PO (08:38)
[2024-05-14] MEDS: MULTIVIT/MIN/PREN/FOL AC/IRON TABLET 1 TAB PO (08:38)
[2024-05-14] MEDS: SIMETHICONE 80 MG TAB.CHEW PO ×3 (08:38→16:59)
[2024-05-14] MEDS: POLYSACCHARIDE IRON COMPLEX 150 MG CAPSULE PO ×2 (08:38→16:59)
[2024-05-14] MEDS: DOCUSATE SODIUM 100 MG CAPSULE PO ×2 (08:38→16:59)
[2024-05-15 11:14] VITALS: BP 133/85; PULSE 78; RESP 18; TEMP 37.1; O2SAT 100
== END 2024-05-14 17:33 | disposition home or self-care (01) | DRG 788 ==
LOC: ANHLDR 05-13 01:19 → ANHOB2 05-13 03:51
PROVIDERS: Admitting Provider Obstetrics & Gynecology; PCP Physician Assistant; Visit Provider Obstetrics & Gynecology
PROC: 10D00Z1 Extraction of Products of Conception, Low, Open Approach (ICD-10-PCS; CPT 59514; principal; 2024-05-13 00:30)
DX: O99.824 Streptococcus B carrier state complicating childbirth (principal); O13.4 Gestational [pregnancy-induced] hypertension without significant proteinuria, complicating childbirth; O77.0 Labor and delivery complicated by meconium in amniotic fluid; O76 Abnormality in fetal heart rate and rhythm complicating labor and delivery; O69.81X0 Labor and delivery complicated by cord around neck, without compression, not applicable or unspecified; Z3A.38 38 weeks gestation of pregnancy; Z37.0 Single live birth; Z87.891 Personal history of nicotine dependence
CPT/HCPCS: 36415; 80053; 84550; 85025; 86592; 86703; 86850; 86900; 86901; 88307; A9270; G0432; J0290; J0456; J0690; J1885; J2274; J2371; J2405; J2550; J2590; J2795; J3010; J3480; J7030; J7120

== ENCOUNTER 2024-05-26 15:43 | Emergency (ER) | payer OTHER, SELFPAY ==
[2024-05-26 16:16] VITALS: BP 143/75; PULSE 64; RESP 18; TEMP 36.3; O2SAT 100
--- NOTE | 2024-05-26 17:17 | ED.GENADULT ---
HPI - General Adult General Chief complaint: Wound/Laceration Stated complaint: c section insicion open Time Seen by Provider: 05/26/24 16:47 History of Present Illness HPI narrative: 34-year-old female presents emergency department for evaluation for a suspected draining seroma on her left lateral aspect of her incision. Patient had a on 05/13. Patient did have follow-up with her OB Gyne in just a few days ago and her wound is well-appearing. Patient states that she bent over and noticed that she had drainage from wound. Patient has been getting serosanguineous drainage that is nonpurulent. Wound is well-appearing with no surrounding erythema. Patient is afebrile. Patient has no complaint of abdominal pain. Related Data Home Medications Medication Instructions Recorded Confirmed alprazolam 0.5 mg tablet 0.5 mg PO TID PRN Anxiety 10/14/22 05/12/24 prenat.vits,nunu,trb-fyli-whqua 1 tablet PO DAILY 04/28/24 05/12/24 labetalol 200 mg tablet 200 mg PO BID 05/12/24 05/12/24 Allergies Allergy/AdvReac Type Severity Reaction Status Date / Time No Known Allergies Allergy Verified 05/26/24 16:19 Review of Systems Review of Systems: All systems reviewed & are unremarkable except as noted in HPI and below PMFSH Family History Family History Grandparent Cerebrovascular accident Diabetes mellitus Family history of arthritis Mother Family history of anemia Breast cancer Social History Social History Smoking packs per day: 0.5 Smoking cigarettes per day: 10.0 Years smoked: 16 Smoking pack-years: 8.00 Smoking status: Former smoker Tobacco type: cigarettes and e-cigarettes/vaping Smoking end date: 10/18/23 Additional smoking assessment comments: SWITCHED FROM CIGARETTES TO VAPING IN 2021 Alcohol intake: current Drinks per week: 2 Substance use: never Substance use type: does not use Do You Feel Safe in your Home?: Yes Lack of Transportation: No Lack of Food: Never True Current Housing: I Have Housing Concerned About Future Housing: No Difficulty Paying Gas/Electric Bills: No Difficulty Paying for Meds: No Currently Unemployed: No Education: Associate Degree Difficulty w/ Childcare or Family Care: No Living arrangements: with family Occupation/Education: occupation Gender identity (if verbalized by the patient): Female Sexual Orientation (if Verbalized by the Patient): Straight or Heterosexual Spiritual care concerns: No Exam Narrative: APPEARANCE: Well appearing, no pain, no distress, well-nourished. HEAD: normocephalic, atraumatic. EYES: PERRLA/EOMI, conjunctivae clear. NOSE: Normal no drainage EARS:TMS clear with good light reflex. THROAT: Pharynx clear, no exudate. NECK: Supple. No adenopathy, no masses. RESPIRATORY: Airway patent, respirations nonlabored. Clear to auscultation bilaterally, no rales, rhonchi, wheezing. CARDIOVASCULAR: Regular rate and rhythm without murmurs rubs or gallops. ABDOMINAL: 1 to 2 cm open area of the left lateral surgical incision is dehisced and is draining serosanguineous fluid with no surrounding erythema and no purulence to the fluid. MUSCULOSKELETAL: Moves all extremities. Strength/ROM intact, No edema, No calf tenderness. NEURO: Alert. Cranial nerves II through XII intact. Good gait. Good coordination SKIN: Warm, dry. Normal Color PSYCHIATRIC: Normal affect/mood. Course Vital Signs Vital signs: Vital Signs Temperature 97.4 F L 05/26/24 16:16 Pulse Rate 64 05/26/24 16:16 Respiratory Rate 18 05/26/24 16:16 Blood Pressure 143/75 H 05/26/24 16:16 Pulse Oximetry 100 05/26/24 16:16 Oxygen Delivery Room Air 05/26/24 16:16 Temperature 97.4 F L 05/26/24 16:16 Pulse Rate 62 05/26/24 17:38 Respiratory Rate 20 05/26/24 17:38 Blood Pressure 129/84 05/26/24 1
[2024-05-26 17:38] VITALS: BP 129/84; PULSE 62; RESP 20; O2SAT 98
== END 2024-05-26 17:39 | disposition home or self-care (01) ==
PROVIDERS: Emergency Provider Emergency Medicine; PCP Obstetrics & Gynecology
DX: O90.2 Hematoma of obstetric wound (principal); Z87.891 Personal history of nicotine dependence
CPT/HCPCS: 99281